=== PATIENT | male | born 1950 | race Caucasian/White ===

== ENCOUNTER 2020-10-12 10:31 | Outpatient (CLI) | payer MEDICARE, BC ==
[2020-10-12 14:53] LABS: BASOPHILS # (AUTO) 0.1 10^3/uL (0.0-0.1); BASOPHILS % (AUTO) 1.5 %; EOSINOPHILS % (AUTO) 0.6 %; HGB - HEMOGLOBIN 12.4 g/dL (14.0-18.0); LYMPHOCYTES # (AUTO) 0.5 10^3/uL (1.5-3.5); LYMPHOCYTES % (AUTO) 14.8 %; MEAN CORPUSCULAR HGB CONC 34.7 g/dL (32.0-36.0); MEAN CORPUSCULAR VOLUME 109.5 fL (80.0-94.0); MEAN PLATELET VOLUME 9.7 fL (7.4-11.4); MONOCYTES # (AUTO) 0.7 10^3/uL (0.0-1.0); MONOCYTES % (AUTO) 19.2 %; NEUTROPHILS # (AUTO) 2.2 10^3/uL (1.5-6.6); PLT - PLATELET COUNT 161 10^3/uL (130-450); RED BLOOD COUNT 3.26 10^6/uL (4.70-6.10); RED CELL DISTRIBUTION WIDTH 12.8 % (12.0-15.0); WHITE BLOOD COUNT 3.4 x10^3/uL (4.8-10.8)
[2020-10-12 15:09] LABS: ALBUMIN 4.4 g/dL (3.2-5.5); ALBUMIN/GLOBULIN RATIO 1.3 (1.0-2.2); CALCIUM 9.4 mg/dL (8.5-10.3); CREATININE 0.9 mg/dL (0.6-1.2); TOTAL PROTEIN 7.8 g/dL (6.7-8.2)
[2020-10-15 11:56] LABS: KAPPA/LAMBDA RATIO 5.78 (1.29-2.55)
== END 2020-10-12 10:32 | disposition home or self-care (01) ==
LOC: LAB.S 10:31
PROVIDERS: ATTEND Internal Medicine Hematology & Oncology
DX: D47.2 Monoclonal gammopathy (principal)
CPT/HCPCS: 36415; 80053; 81599; 82784; 83883; 84155; 84165; 85025; 86334

== ENCOUNTER 2020-12-04 19:51 | Outpatient (CLI) | payer MEDICARE, BC | END 2020-12-04 19:52 | disposition EMS.NT | LOC: EMS 19:51 | DX: R13.10 Dysphagia, unspecified (principal) ==

== ENCOUNTER 2020-12-04 20:50 | Emergency (ER) | payer MEDICARE, BC ==
--- NOTE | 2020-12-04 21:46 | ED Physician Documentation ---
History of Present Illness - Stated complaint Stated Complaint: VOM/FOB IN THROAT - Chief complaint Chief Complaint: Resp - History obtained from History obtained from: Patient - History of Present Illness Timing: How many hours ago (3.5) - Additonal information Additional information: 70-year-old male with a history of esophageal stricture disease and support tonight when the port got stuck he had significant chest pain associated with this chest pain is moved down and he still is not able to pass his secretions. He is coughing up his secretions periodically. He has had experience with obstruction and usually is able to pass this within an hour he has had to have it retrieved once and he feels that this is not moving now. Review of Systems Constitutional: denies: Fever Eyes: denies: Decreased vision Ears: denies: Ear pain Nose: denies: Congestion Throat: denies: Sore throat Respiratory: denies: Cough GI: denies: Abdominal Pain : denies: Dysuria, Frequency PD PAST MEDICAL HISTORY - Past Medical History Past Medical History: Yes - Allergies Allergies/Adverse Reactions: Allergies Allergy/AdvReac Type Severity Reaction Status Date / Time lisinopril Allergy Edema Verified 12/04/20 20:53 - Social History Does the pt smoke?: No Smoking Status: Never smoker Does the pt drink ETOH?: No Does the pt have substance abuse?: No - Immunizations Immunizations are current?: Yes - POLST Patient has POLST: No PD ED PE NORMAL - Vitals Vital signs reviewed: Yes (hypertensive ) - General General: Alert and oriented X 3, Well developed/nourished, Other (70 y/o male with the front of his shirt all wet from vomiting secretions is holding an emesis bag and periodically will cough, choke and spit into the bag. ) - HEENT HEENT: Atraumatic, PERRL, EOMI - Neck Neck: Supple, no meningeal sign - Cardiac Cardiac: RRR, No murmur - Respiratory Respiratory: No respiratory distress, Clear bilaterally - Abdomen Abdomen: Soft, Non tender - Back Back: No CVA TTP, No spinal TTP - Derm Derm: Normal color, Warm and dry, No rash - Extremities Extremities: No deformity, No edema - Neuro Neuro: Alert and oriented X 3, medication coordinator 2-12 intact, No motor deficit, No sensory deficit, Normal speech Eye Opening: Spontaneous Motor: Obeys Commands Verbal: Oriented GCS Score: 15 - Psych Psych: Normal mood, Normal affect Results - Vitals Vitals: Vital Signs - 24 hr 12/04/20 12/04/20 12/04/20 20:53 20:59 21:48 Temperature 36.8 C 36.8 C 36.8 C Heart Rate 62 62 63 Respiratory 19 19 18 Rate Blood Pressure 162/58 H 162/58 H 116/65 O2 Saturation 96 96 99 Oxygen O2 Source Room air PD MEDICAL DECISION MAKING - ED course Complexity details: considered differential, d/w patient, d/w product development consultant ([facility] surgery here not actually rehabilitation counsellor recommends contacting Dr. Fulton which has now become unecessary) ED course: 70-year-old male with a history of esophageal stricture has an esophageal foreign body in the form of pork but has not passed. He is coughing up his secretions and we began to prepare for esophageal foreign body removal. We did administer Katie mist which resolved the problem. Patient was quite happy and symptom-free. Departure - Departure Disposition: 01 Home, Self Care Clinical Impression: Esophageal obstruction due to food impaction Condition: Stable Instructions: ED Foreign Body Esophageal Rslv Follow-Up: Erickson Montes MD [Primary Care Provider] - Discharge Date/Time: 12/04/20 21:48
[2020-12-04 21:49] VITALS: BP 116/65
== END 2020-12-04 21:48 | disposition home or self-care (01) ==
LOC: ED 20:50
DX: T18.128A Food in esophagus causing other injury, initial encounter (principal); X58.XXXA Exposure to other specified factors, initial encounter
CPT/HCPCS: 99281; 99283

== ENCOUNTER 2021-02-18 09:38 | Outpatient (CLI) | payer MEDICARE, BC ==
--- NOTE | 2021-02-18 14:25 | MRI Report ---
PROCEDURE: Brain W/O INDICATIONS: TREMORS, MGUS, SOB, AORTIC VALVE INSUFF TECHNIQUE: Noncontrast axial T1 spin echo, axial T2 fast spin echo, sagittal and axial FLAIR, coronal T2 fast sp in echo, axial gradient echo, axial diffusion and ADC through the brain. COMPARISON: None. FINDINGS: Image quality: Excellent. CSF Spaces: Basal cisterns are patent. No extra-axial fluid collections. Ventricles are normal in size and shape. Brain: No intracranial masses or hemorrhage. Jones/white matter interface is normal. There is modera te, diffuse cerebral and loss. There are mild periventricular and subcortical white matter chronic mi crovascular ischemic changes. Subtle,. Subtle increased FLAIR signal noted in the posterior margin of the right cerebral hemisphere in the right cerebellar hemisphere which is not identified on the T2-w eighted images or the sagittal FLAIR images and likely represents artifact. Brainstem appears normal. Diffusion-weighted images demonstrate no acute ischemic insult. No chronic ischemic insults. Norm al intravascular flow voids are present. Skull and face: Calvarium has normal marrow signal. Orbits appear normal. Sinuses: Sinuses and mastoids are clear. IMPRESSION: 1. No acute intracranial disease process. 2. No areas of acute or chronic infarction. 3. No abnormal intracranial mass. 4. Moderate, diffuse cerebral volume loss. 5. Mild periventricular and subcortical white matter chronic microvascular ischemic change. Reviewed by: Krystal Estrella MD, PhD on 02/18/2021 1:43 PM PDT Approved by: Krystal Estrella MD, PhD on 02/18/2021 1:43 PM PDT Station ID: [id number]
== END 2021-02-18 09:39 | disposition home or self-care (01) ==
LOC: DI 09:38
PROVIDERS: ATTEND Psychiatry & Neurology Neurology
DX: G25.0 Essential tremor (principal); G25.2 Other specified forms of tremor; D47.2 Monoclonal gammopathy; R06.02 Shortness of breath; I35.1 Nonrheumatic aortic (valve) insufficiency

== ENCOUNTER 2021-03-07 09:40 | Outpatient (CLI) | payer MEDICARE, BC ==
[2021-03-07 14:56] LABS: BASOPHILS # (AUTO) 0.1 10^3/uL (0.0-0.1); BASOPHILS % (AUTO) 1.5 %; EOSINOPHILS # (AUTO) 0.1 10^3/uL (0.0-0.7); EOSINOPHILS % (AUTO) 1.5 %; HCT - HEMATOCRIT 33.9 % (42.0-52.0); HGB - HEMOGLOBIN 11.5 g/dL (14.0-18.0); LYMPHOCYTES # (AUTO) 0.7 10^3/uL (1.5-3.5); LYMPHOCYTES % (AUTO) 20.6 %; MEAN CORPUSCULAR HEMOGLOBIN 37.3 pg (27.0-31.0); MEAN CORPUSCULAR HGB CONC 33.9 g/dL (32.0-36.0); MEAN CORPUSCULAR VOLUME 110.1 fL (80.0-94.0); MEAN PLATELET VOLUME 10.3 fL (7.4-11.4); MONOCYTES # (AUTO) 0.8 10^3/uL (0.0-1.0); MONOCYTES % (AUTO) 22.1 %; NEUTROPHILS # (AUTO) 1.9 10^3/uL (1.5-6.6); NEUTROPHILS % (AUTO) 53.7 %; PLT - PLATELET COUNT 174 10^3/uL (130-450); RED BLOOD COUNT 3.08 10^6/uL (4.70-6.10); RED CELL DISTRIBUTION WIDTH 12.5 % (12.0-15.0); WHITE BLOOD COUNT 3.4 x10^3/uL (4.8-10.8)
[2021-03-07 15:13] LABS: ALBUMIN 4.4 g/dL (3.2-5.5); ALBUMIN/GLOBULIN RATIO 1.3 (1.0-2.2); BILIRUBIN,TOTAL 1.5 mg/dL (0.2-1.0); CREATININE 0.9 mg/dL (0.6-1.2); POTASSIUM 4.4 mmol/L (3.5-5.0); TOTAL PROTEIN 7.8 g/dL (6.7-8.2)
[2021-03-07 15:57] LABS: PLATELET ESTIMATE, MANUAL NORMAL (130-450,000) (NORMAL); PLATELET MORPHOLOGY NORMAL APPEARANCE (NORMAL)
[2021-03-07 15:58] LABS: WBC MORPHOLOGY (MULTIPLE) NORMAL APPEARANCE (NORMAL)
== END 2021-03-07 09:41 | disposition home or self-care (01) ==
LOC: LAB.S 09:40
PROVIDERS: ATTEND Internal Medicine Hematology & Oncology
DX: D53.9 Nutritional anemia, unspecified (principal); R74.01 Elevation of levels of liver transaminase levels; R74.8 Abnormal levels of other serum enzymes
CPT/HCPCS: 36415; 80053; 81599; 82150; 82784; 83615; 83690; 83883; 85025; 85610; 87389

== ENCOUNTER 2021-08-01 11:49 | Emergency (ER) | payer MEDICARE, BC ==
[2021-08-01 13:30] LABS: BASOPHILS # (AUTO) 0.1 10^3/uL (0.0-0.1); BASOPHILS % (AUTO) 1.1 %; EOSINOPHILS % (AUTO) 0.7 %; HCT - HEMATOCRIT 37.4 % (42.0-52.0); HGB - HEMOGLOBIN 12.5 g/dL (14.0-18.0); LYMPHOCYTES # (AUTO) 0.7 10^3/uL (1.5-3.5); LYMPHOCYTES % (AUTO) 15.6 %; MEAN CORPUSCULAR HEMOGLOBIN 36.5 pg (27.0-31.0); MEAN CORPUSCULAR HGB CONC 33.4 g/dL (32.0-36.0); MEAN CORPUSCULAR VOLUME 109.4 fL (80.0-94.0); MEAN PLATELET VOLUME 9.7 fL (7.4-11.4); MONOCYTES # (AUTO) 0.7 10^3/uL (0.0-1.0); MONOCYTES % (AUTO) 14.7 %; NEUTROPHILS % (AUTO) 67.2 %; PLT - PLATELET COUNT 148 10^3/uL (130-450); RED BLOOD COUNT 3.42 10^6/uL (4.70-6.10); RED CELL DISTRIBUTION WIDTH 13.4 % (12.0-15.0); WHITE BLOOD COUNT 4.5 x10^3/uL (4.8-10.8)
[2021-08-01 13:34] LABS: BILIRUBIN,URINE NEGATIVE (NEGATIVE); GLUCOSE, URINE (UA) NEGATIVE (NEGATIVE); KETONES,URINE (UA) 15 mg/dL (NEGATIVE); LEUKOCYTE ESTERASE, URINE NEGATIVE (NEGATIVE); NITRITE,URINE NEGATIVE (NEGATIVE); OCCULT BLOOD,URINE NEGATIVE (NEGATIVE); PROTEIN,URINE NEGATIVE (NEGATIVE); UROBILINOGEN,URINE 0.2 (NORMAL) E.U./dL (NORMAL)
[2021-08-01 13:38] LABS: CLARITY,URINE CLEAR (CLEAR)
[2021-08-01 13:43] LABS: ALBUMIN 4.9 g/dL (3.2-5.5); ALBUMIN/GLOBULIN RATIO 1.4 (1.0-2.2); BILIRUBIN,TOTAL 1.3 mg/dL (0.2-1.0); CALCIUM 10.2 mg/dL (8.5-10.3); CREATININE 0.8 mg/dL (0.6-1.2); POTASSIUM 4.2 mmol/L (3.5-5.0); TOTAL PROTEIN 8.4 g/dL (6.7-8.2)
--- NOTE | 2021-08-01 14:21 | ED Physician Documentation ---
History of Present Illness - Stated complaint Stated Complaint: ABD PX - Chief complaint Chief Complaint: Abd Pain - History obtained from History obtained from: Patient - Additonal information Additional information: This is a 70-year-old male who presents with intermittent, generalized abdominal pain for about a year and a half. He has been seen by his primary care provider for this and has had a EGD and colonoscopy as well as a CT of his abdomen back in April 09 which was reassuring. He does have some hepatic steatosis on that scan. He saw his primary care doctor on July 31, yesterday, and had some blood work done and had a slightly elevated amylase and lipase therefore he was sent into the ER for possible CT scan. He currently does not have any pain but states when the pain does come on it is quite debilitating, he has difficulty standing up due to the pain, pain is better laying down or with rest. He has no associated fever, chills, nausea or vomiting, diarrhea or constipation, urinary symptoms. No chest pain or dyspnea. Pain is not worse with p.o. intake. He does have a history of esophageal motor disorder, endoscopy and day of the patient did not make much of a difference, and he has not had any improvement with this that he is followed by his PCP for this. Suspect 10 pounds over the course of the last year, unintentionally. He has another endoscopy scheduled or August 19. Review of Systems Ten Systems: 10 systems reviewed and negative GI: reports: Abdominal Pain PD PAST MEDICAL HISTORY - Past Medical History Past Medical History: Yes Cardiovascular: Hypertension GI: GERD, Other (esophageal motility disorder) - Allergies Allergies/Adverse Reactions: Allergies Allergy/AdvReac Type Severity Reaction Status Date / Time lisinopril Allergy Edema Verified 08/01/21 13:07 - Social History Does the pt smoke?: No Smoking Status: Never smoker Does the pt drink ETOH?: No Does the pt have substance abuse?: No - Immunizations Immunizations are current?: Yes - POLST Patient has POLST: No PD ED PE NORMAL - Vitals Vital signs reviewed: Yes - General General: Alert and oriented X 3, No acute distress, Well developed/nourished - HEENT HEENT: Atraumatic, Moist mucous membranes, Pharynx benign - Neck Neck: Supple, no meningeal sign, No JVD - Cardiac Cardiac: RRR, No murmur - Respiratory Respiratory: No respiratory distress, Clear bilaterally - Abdomen Abdomen: Normal bowel sounds, Soft, Non tender, Non distended - Derm Derm: Normal color, Warm and dry, No rash - Neuro Neuro: Alert and oriented X 3 Eye Opening: Spontaneous Motor: Obeys Commands Verbal: Oriented GCS Score: 15 - Psych Psych: Normal mood, Normal affect Results - Vitals Vitals: Vital Signs - 24 hr 08/01/21 08/01/21 13:03 15:58 Temperature 36.9 C 37.0 C Heart Rate 59 L 60 Respiratory 16 17 Rate Blood Pressure 199/63 H 160/49 H O2 Saturation 100 100 Oxygen O2 Source Room air - EKG (time done) No standard instances Rate: Rate (enter#) (60) Rhythm: NSR Toponas: LAD Intervals: Prolonged IN, 1st degree AVB QRS: Normal Ischemia: Normal ST segments Computer interpretation: Agree with computer - Labs Labs: Laboratory Tests 08/01/21 08/01/21 08/01/21 13:15 13:15 13:15 WBC 4.5 L RBC 3.42 L Hgb 12.5 L Hct 37.4 L MCV 109.4 H MCH 36.5 H MCHC 33.4 RDW 13.4 Plt Count 148 MPV 9.7 Neut # (Auto) 3.0 Lymph # (Auto) 0.7 L Burnet # (Auto) 0.7 Eos # (Auto) 0.0 Baso # (Auto) 0.1 Absolute Nucleated RBC 0.00 Nucleated RBC % 0.0 Sodium 139 Potassium 4.2 Chloride 99 L Carbon Dioxide 28 Anion Gap 12.0 BUN 19 Creatinine 0.8 Estimated GFR (MDRD) 95 Glucose 94 Calcium 10.2 Total Bilirubin 1.3 H AST 33 ALT 21 Alkaline Phosphatase 30 L Troponin I High Sens 13.8 Total Protein 8.4 H Albumin 4.9 Globulin 3.5 Albumin/Globulin Ratio 1.4 Lipase 78 H Urine Color Urine Clarity Urine pH Ur Specific Perryman Urine Protein Urine Glucose (UA) Urine Ketones Urine Occult Blood Urine Nitrite Urine Bilirubin Urine Urobilinogen Ur Leukocyte Esterase Ur Microscopic Review Urine Culture Comments 08/01/21 13:27 WBC RBC Hgb Hct MCV MCH MCHC RDW Plt Count MPV Neut # (Auto) Lymph # (Auto) Burnet # (Auto) Eos # (Auto) Baso # (Auto) Absolute Nucleated RBC Nucleated RBC % Sodium Potassium Chloride Carbon Dioxide Anion Gap BUN Creatinine Estimated GFR (MDRD) Glucose Calcium Total Bilirubin AST ALT Alkaline Phosphatase Troponin I High Sens Total Protein Albumin Globulin Albumin/Globulin Ratio Lipase Urine Color YELLOW Urine Clarity CLEAR Urine pH 6.0 Ur Specific Perryman 1.020 Urine Protein NEGATIVE Urine Glucose (UA) NEGATIVE Urine Ketones 15 H Urine Occult Blood NEGATIVE Urine Nitrite NEGATIVE Urine Bilirubin NEGATIVE Urine Urobilinogen 0.2 (NORMAL) Ur Leukocyte Esterase NEGATIVE Ur Microscopic Review NOT INDICATED Urine Culture Comments NOT INDICATED PD MEDICAL DECISION MAKING - ED course Complexity details: reviewed old records, reviewed results, re-evaluated patient, considered differential, d/w patient, d/w family ED course: This is a 70-year-old male who presented with generalized abdominal pain, on and off for the last year and a half or so. There is no acute findings on his physical exam today and currently does not have any pain but was sent in by his PCP for CT scan to rule out pancreatitis. His CT today shows no acute findings consistent with pancreatitis though mild pancreatitis may not show up on a CT. His lipase is slightly elevated but may not be of clinical significance. Patient was however advised to try a clear liquid diet for couple days to see if this alleviates the pain when the pain comes on. He may have a mild chronic recurrent pancreatitis though nothing is seen on CT. He has a stable fatty liver, known hernia, no other acute changes on CT scan today. Is well- appearing, vitals are stable. Will continue follow-up with GI, has an appointment in a couple of weeks to GI at [facility] and will have an endoscopy at that time. I reviewed return precautions including increasing pain, fever, vomiting or other new concerns. Departure - Departure Disposition: 01 Home, Self Care Clinical Impression: Abdominal pain Qualifiers: Abdominal location: generalized Qualified Code(s): R10.84 - Generalized abdominal pain Condition: Good Instructions: ED Abdominal Pain Unkn Cause Male Comments: You presented with abdominal pain, this pain has been going on for quite some time but seems to have periods of exacerbation. You did have a slightly elevated lipase which may be mild pancreatitis but there were no CT findings consistent with pancreatitis. Mild pancreatitis sometimes does not show up on a CT. Treatment is a clear liquid diet and pain medication and only advancing the diet when the pain has resolved. Please continue to follow-up with your primary care provider and your drier tender and continue with your scheduled EGD on August 19 as discussed. Return if you develop a fever, increasing abdominal pain vomiting or other new concerns. Discharge Date/Time: 08/01/21 16:48
[2021-08-01] MEDS ORDERED: IOVERSOL 320 100 ML VIAL IVP ONE ×2 (15:01→15:14)
[2021-08-01 15:59] VITALS: BP 160/49
--- NOTE | 2021-08-01 16:12 | CT Report ---
PROCEDURE: Abdomen/Pelvis W INDICATIONS: sent from PCP for possible pancreatitis CONTRAST: IV CONTRAST: Optiray 320 ml: 100 PO CONTRAST: *NO PO CONTRAST TECHNIQUE: After the administration of IV contrast, 5 mm thick sections acquired from the diaphragms to the symp hysis. 5 mm thick coronal and sagittal reformats were acquired. For radiation dose reduction, the f ollowing was used: automated exposure control, adjustment of mA and/or kV according to patient size. COMPARISON: None. FINDINGS: Image quality: Excellent. ABDOMEN: Lung bases: Lung bases are clear. Heart size is normal. Trace pericardial calcification. No perica rdial effusion. No hiatal hernia. Solid organs: Liver demonstrates moderate hepatic steatosis and is normal size. In segment IVb, ther e is a heterogeneous enhancing ovoid mass measuring 1.3 cm, 12/27, probably a hemangioma. No other lindsay er lesions. Gallbladder demonstrates normal wall thickness. No biliary dilatation. The spleen is normal size and contains numerous punctate calcifications. No adrenal nodules. 2 exophytic cysts arise from the upper pole of the left kidney. No hydronephrosis or nephrolithiasis. Normal caliber ureters. The pancreas is normal size. The margins are smooth. No peripancreatic inflammation or fluid collecti ons. No ductal dilatation. No pancreatic mass. Peritoneum and bowel: Bowel loops demonstrate normal wall thickness and caliber. No free fluid or a ir. Nodes and vessels: No retroperitoneal or mesenteric adenopathy by size criteria. Aorta and inferior vena cava are normal in size. Miscellaneous: No ventral hernias. PELVIS: Genitourinary: Bladder wall thickness is normal. Bilobed urinary bladder morphology. Mild prostatome ángel. Miscellaneous: Moderate sized indirect left inguinal hernia containing a nonobstructed loop of proxim al sigmoid colon. No fluid in the hernia sac. Bones: No suspicious bony lesions. No vertebral body compression fractures. IMPRESSION: 1. No CT evidence of pancreatitis. Mild pancreatitis may be occult on CT and detected by labs only. 2. Moderate hepatic steatosis. 3. 1.3 cm enhancing liver lesion most likely a hemangioma. For further evaluation, contrast-enhanced liver protocol MRI may be useful. 4. Moderate-sized left inguinal hernia containing a nonobstructed loop of distal colon. Reviewed by: Noa Chavis MD on 08/01/2021 4:11 PM PDT Approved by: Noa Chavis MD on 08/01/2021 4:11 PM PDT Station ID: [id number]
== END 2021-08-01 16:48 | disposition home or self-care (01) ==
LOC: ED 11:49
DX: R10.84 Generalized abdominal pain (principal); K76.0 Fatty (change of) liver, not elsewhere classified; I10 Essential (primary) hypertension; K21.9 Gastro-esophageal reflux disease without esophagitis; K22.4 Dyskinesia of esophagus
CPT/HCPCS: 36415; 74177; 80053; 81003; 83690; 84484; 85025; 93005; 99284; Q9967; 81001; 87086

== ENCOUNTER 2021-11-05 09:56 | Outpatient (CLI) | payer MEDICARE, BC ==
[2021-11-05 14:57] LABS: BASOPHILS % (AUTO) 1.2 %; EOSINOPHILS # (AUTO) 0.1 10^3/uL (0.0-0.7); EOSINOPHILS % (AUTO) 3.3 %; HCT - HEMATOCRIT 34.4 % (42.0-52.0); HGB - HEMOGLOBIN 11.7 g/dL (14.0-18.0); LYMPHOCYTES # (AUTO) 0.6 10^3/uL (1.5-3.5); LYMPHOCYTES % (AUTO) 17.6 %; MEAN CORPUSCULAR HEMOGLOBIN 38.5 pg (27.0-31.0); MEAN CORPUSCULAR VOLUME 113.2 fL (80.0-94.0); MEAN PLATELET VOLUME 9.6 fL (7.4-11.4); MONOCYTES # (AUTO) 0.9 10^3/uL (0.0-1.0); MONOCYTES % (AUTO) 25.3 %; NEUTROPHILS # (AUTO) 1.8 10^3/uL (1.5-6.6); PLT - PLATELET COUNT 272 10^3/uL (130-450); RED BLOOD COUNT 3.04 10^6/uL (4.70-6.10); RED CELL DISTRIBUTION WIDTH 14.4 % (12.0-15.0); WHITE BLOOD COUNT 3.4 x10^3/uL (4.8-10.8)
[2021-11-05 15:14] LABS: ALBUMIN 4.4 g/dL (3.2-5.5); ALBUMIN/GLOBULIN RATIO 1.3 (1.0-2.2); BILIRUBIN,TOTAL 0.9 mg/dL (0.2-1.0); CALCIUM 10.1 mg/dL (8.5-10.3); CREATININE 0.8 mg/dL (0.6-1.2); POTASSIUM 4.3 mmol/L (3.5-5.0); TOTAL PROTEIN 7.7 g/dL (6.7-8.2)
== END 2021-11-05 09:57 | disposition home or self-care (01) ==
LOC: LAB.S 09:56
PROVIDERS: ATTEND Internal Medicine Hematology & Oncology
DX: D47.2 Monoclonal gammopathy (principal)
CPT/HCPCS: 36415; 80053; 81599; 82784; 83883; 84155; 84165; 85025; 86334

== ENCOUNTER 2022-04-02 15:28 | Outpatient (CLI) | payer MEDICARE, BC | END 2022-04-02 15:29 | disposition EMS.NT | LOC: EMS 15:28 | DX: R19.30 Abdominal rigidity, unspecified site (principal) ==

== ENCOUNTER 2022-05-29 09:50 | Outpatient (CLI) | payer MEDICARE, BC ==
[2022-05-29 14:29] LABS: BASOPHILS # (AUTO) 0.1 10^3/uL (0.0-0.1); BASOPHILS % (AUTO) 1.1 %; EOSINOPHILS % (AUTO) 0.7 %; HCT - HEMATOCRIT 35.1 % (42.0-52.0); HGB - HEMOGLOBIN 11.5 g/dL (14.0-18.0); LYMPHOCYTES # (AUTO) 0.6 10^3/uL (1.5-3.5); LYMPHOCYTES % (AUTO) 14.4 %; MEAN CORPUSCULAR HEMOGLOBIN 33.2 pg (27.0-31.0); MEAN CORPUSCULAR HGB CONC 32.8 g/dL (32.0-36.0); MEAN CORPUSCULAR VOLUME 101.4 fL (80.0-94.0); MEAN PLATELET VOLUME 9.3 fL (7.4-11.4); MONOCYTES # (AUTO) 0.7 10^3/uL (0.0-1.0); MONOCYTES % (AUTO) 15.6 %; NEUTROPHILS % (AUTO) 67.7 %; PLT - PLATELET COUNT 233 10^3/uL (130-450); RED BLOOD COUNT 3.46 10^6/uL (4.70-6.10); RED CELL DISTRIBUTION WIDTH 14.2 % (12.0-15.0); WHITE BLOOD COUNT 4.4 x10^3/uL (4.8-10.8)
[2022-05-29 15:53] LABS: ALBUMIN 4.6 g/dL (3.2-5.5); ALBUMIN/GLOBULIN RATIO 1.3 (1.0-2.2); BILIRUBIN,TOTAL 0.7 mg/dL (0.2-1.0); CREATININE 0.8 mg/dL (0.6-1.2); POTASSIUM 4.1 mmol/L (3.5-5.0); TOTAL PROTEIN 8.1 g/dL (6.7-8.2)
[2022-05-30 16:08] LABS: KAPPA FREE LT CHAINS SERUM 19.1 mg/L (3.3-19.4)
== END 2022-05-29 09:51 | disposition home or self-care (01) ==
LOC: LAB.S 09:50
PROVIDERS: ATTEND Internal Medicine Hematology & Oncology
DX: D47.2 Monoclonal gammopathy (principal)
CPT/HCPCS: 36415; 80053; 81599; 82784; 83521; 83883; 85025